=== PATIENT | female | born 2000 | race African-American/Black ===

== ENCOUNTER 2025-09-09 06:09 | Day surgery (SDC) | payer OTHER ==
[~2025-09-09] VITALS: Ht 152.4 cm; Wt 54.9 kg
[~2025-09-09 06:09] MED LIST: ACET1TAB55 PO; CYCL-707 PO; LORA-243 PO; NAPR-885 PO
[2025-09-09] MEDS ORDERED: LR 1,000 ML IV SCH (06:35)
[2025-09-09] MEDS ORDERED: LIDOCAINE W/EPINEPHrine 1% 20 ML VIAL SC ONE (07:25)
[2025-09-09] MEDS: LIDOCAINE W/EPINEPHrine 1% 20 ML VIAL XX ONE (07:35)
[2025-09-09] MEDS: SODIUM BICARBONATE 8.4% INJ 50MEQ/50ML VIAL XX ONE (07:35)
[2025-09-09 08:29] VITALS: BP 129/78; TEMP 97.8; O2SAT 100
== END 2025-09-09 08:44 | disposition home or self-care (01) ==
LOC: M SDC 06:09
PROVIDERS: ATTEND Orthopaedic Surgery Hand Surgery
DX: M65.341 Trigger finger, right ring finger (principal); Z87.891 Personal history of nicotine dependence